=== PATIENT | female | born 1990 | race Caucasian/White ===

== ENCOUNTER 2018-07-06 20:29 | Emergency (ER) | payer MEDICAID ==
[2018-07-06] MEDS ORDERED: AZITHROMYCIN 250 MG TAB PO ONE (20:50)
--- NOTE | 2018-07-06 20:54 | EDPHY ---
H & P Stated Complaint: sent from for further work up of lt peritonsil abcess Time Seen by Provider: 07/06/18 20:44 HPI/ROS: CHIEF COMPLAINT: Tonsillitis HISTORY OF PRESENT ILLNESS: Patient is a 27-year-old female who comes to the emergency department complaining of painful exudative tonsils for the last week. She was seen on Saturday and had a rapid strep test done that was negative. She was seen again today, on Saturday, at the urgent care where they performed another rapid strep as well as a mono spot test. These were both negative. There was some concern for possible abscess so she was referred here to the ER. She has not had a fever. She was treated with Decadron and Toradol at the urgent care. She denies abdominal pain. No sick contacts. No rash. No runny nose. Severity: Moderate Modifying factors: None REVIEW OF SYSTEMS: Constitutional: denies: chills, fever, recent illness, recent injury EENTM: See HPI Respiratory: denies: cough, shortness of breath Cardiac: denies: chest pain, irregular heart rate, lightheadedness, palpitations Gastrointestinal/Abdominal: denies: abdominal pain, diarrhea, nausea, vomiting, blood streaked stools Genitourinary: denies: dysuria, frequency, hematuria, pain Musculoskeletal: denies: joint pain, muscle pain Skin: denies: lesions, rash, jaundice, bruising Neurological: denies: headache, numbness, paresthesia, tingling, dizziness, weakness Hematologic/Lymphatic: denies: blood clots, easy bleeding, easy bruising Immunologic/allergic: denies: HIV/AIDS, transplant 10 systems reviewed and negative except as noted EXAM: GENERAL: Well-appearing, well-nourished and in no acute distress. HEAD: Atraumatic, normocephalic. EYES: Pupils equal round and reactive to light, extraocular movements intact, sclera anicteric, conjunctiva are normal. ENT: TMs normal, nares patent, bilateral exudative tonsils, no peritonsillar abscess. No uvular deviation. No airway obstruction. She is talking without difficulty or distress. Moist mucous membranes. NECK: Normal range of motion, supple without lymphadenopathy or JVD. LUNGS: Breath sounds clear to auscultation bilaterally and equal. No wheezes rales or rhonchi. HEART: Regular rate and rhythm without murmurs, rubs or gallops. ABDOMEN: Soft, nontender, normoactive bowel sounds. No guarding, no rebound. No masses appreciated. No splenomegaly or tenderness BACK: No CVA tenderness, no spinal tenderness, step-offs or deformities EXTREMITIES: Normal range of motion, no pitting or edema. No clubbing or cyanosis. NEUROLOGICAL: Cranial nerves II through XII grossly intact. Normal speech, normal gait. 5/5 strength, normal movement in all extremities, normal sensation , normal reflexes PSYCH: Normal mood, normal affect. SKIN: Warm, dry, normal turgor, no visible rashes or lesions. Source: Patient Exam Limitations: No limitations - Personal History LMP (Females 10-55): 22-28 Days Ago Current Tetanus Diphtheria and Acellular Pertussis (TDAP): Yes - Medical/Surgical History Hx Asthma: No Hx Chronic Respiratory Disease: No Hx Diabetes: No Hx Cardiac Disease: No Hx Renal Disease: No Hx Cirrhosis: No Hx Alcoholism: No Hx HIV/AIDS: No Hx Splenectomy or Spleen Trauma: No - Family History Significant Family History: No pertinent family hx - Social History Smoking Status: Never smoked Alcohol Use: Sober Drug Use: None Constitutional: Initial Vital Signs Temperature (C) 36.6 C 07/06/18 20:44 Heart Rate 82 07/06/18 20:44 Respiratory Rate 20 07/06/18 20:44 Blood Pressure 137/88 H 07/06/18 20:44 O2 Sat (%) 97 07/06/18 20:44 O2 Delivery Mode Room Air Allergies/Adverse Reactions: Penicillins Allergy (Unknown, Verified 12/25/10 17:07) Unable to assess Allergy (Uncoded 12/25/10 17:07) Home Medications: Medication Instructions Recorded Azithromycin 250 mg PO DAILY #4 tablet 07/06/18 Zoloft 50mg (*) 07/06/18 traZODone 07/06/18 Medical Decision Making ED Course/Re-evaluation: The patient has peritonsillar exudate. No sign of significant swelling or abscess or phlegmon. No respiratory changes. I do not suspect fluid collection or drainable abscess. I do not think that imaging is indicated. Patient understands and agrees with this plan. I will start her on azithromycin. She understands that this may be mono and that she has had a false negative Monospot which is common in the 1st week of illness. If she is not improving in next 2-3 days I recommended she return for re-evaluation. We also discussed indications for returning if her symptoms worsen such as difficulty breathing, swallowing or high fevers. Differential Diagnosis: Partial list of the Differential diagnosis considered include but were not limited to; tonsillitis, strep throat, mononucleosis and although unlikely based on the history and physical exam, I also considered abscess, phlegmon, foreign body. I discussed these differential diagnoses and the plan with the patient as well as the usual and expected course. The patient understands that the diagnosis is provisional and that in medicine we are not always correct and that further workup is often warranted. Usual and customary warnings were given. All of the patient's questions were answered. The patient was instructed to return to the emergency department should the symptoms at all worsen or return, otherwise to followup with the physician as we discussed. - Data Points Medications Given: Discontinued Medications Azithromycin (Zithromax) 500 mg PO EDNOW ONE PRN Reason: Protocol Stop: 07/06/18 20:51 Last Admin: 07/06/18 21:02 Dose: 500 mg Oxycodone/Acetaminophen (Percocet 5/325mg Prepack#4) 1 btl TAKEHOME EDNOW ONE Stop: 07/06/18 21:10 Last Admin: 07/06/18 21:13 Dose: 1 btl Departure - Departure Disposition: Home, Routine, Self-Care Clinical Impression: Tonsillitis Condition: Fair Instructions: Oxycodone/Acetaminophen (By mouth), Tonsillitis (ED) Referrals: NONE *PRIMARY CARE P,. [Primary Care Provider] - As per Instructions ED,PHYSICIAN ONDUTY [Medical Doctor] - 2-3 days, if not improved Prescriptions: Azithromycin 250 mg PO DAILY #4 tablet
[2018-07-06] MEDS ORDERED: OXYCODONE/APAP 5/325MG PREPACK#4 BTL TAKEHOME ONE (21:09)
[2018-07-06 21:24] VITALS: BP 122/62
== END 2018-07-06 21:15 | disposition home or self-care (01) ==
LOC: CED 20:29
DX: J03.90 Acute tonsillitis, unspecified (principal)
CPT/HCPCS: 99283-ER

== ENCOUNTER 2018-07-08 11:35 | Emergency (ER) | payer MEDICAID ==
--- NOTE | 2018-07-08 14:26 | EDPHY ---
General Time Seen by Provider: 07/08/18 14:26 Narrative: CLINICAL IMPRESSION: Peritonsillar phlegmon ASSESSMENT/PLAN: Patient is a 27-year-old female with a significant history of depression who presents to the emergency department with complaints of worsening sore throat, inability to pass liquids and change in voice progressively occurring over the last week. Patient is afebrile she is very uncomfortable appearing however not toxic-appearing. Her vital signs were reviewed, she was mildly tachycardic on arrival. On physical exam reveals asymmetric tonsillar enlargement L>R; very firm tonsil without areas of fluctuance, uvula still remains midline. Patient with hoarseness and trismus however phonation is strong and without hot potato voice. There was no stridor, drooling, hypoxia or respiratory distress. Rapid strep negative, culture is still pending. CBC revealed no evidence of leukocytosis, lactate was normal without evidence of sepsis or serious bacterial illness. Basic metabolic panel grossly normal. CT soft tissue neck revealed left tonsillar/peritonsillar edema and phlegmon without dominant enhancing rim to suggest drainable fluid collection. History of physical examination is consistent with peritonsillar phlegmon and cellulitis. There was no evidence of peritonsillar abscess, retropharyngeal abscess, airway obstruction, Maurisio angina, or hypoxia. ENT was formally consulted, I spoke with ADRIANE Christensen; after consulting with her physician agreed with plan of IV antibiotics and steroids with follow-up tomorrow morning. Patient treated with 900 mg of clindamycin and 16 mg of dexamethasone. The patient was scheduled for an appointment at 9:45 a.m. with their office and is given specific instructions on where to go. Patient was also given a prescription for clindamycin which she will take for the next 10 days as well as a dexamethasone taper per the recommendation of ENT. On repeat examination prior to discharge the patient is much more comfortable appearing, was able to tolerate p. O. and felt comfortable going home with close follow-up. Her airway remained patent without evidence of obstruction or airway compromise. Strict return precautions discussed- she is to return should she develop worsening sore throat, drooling, change in voice, inability to pass secretions or any other concerning symptom. Patient verbalizes understanding and is in agreement with this plan. DIFFERENTIAL DX: Bacterial pharyngitis, retropharyngeal abscess, peritonsillar abscess, deep space infection, angioedema, Maurisio's, a node, epiglottitis, meningitis, pneumonia ED COURSE: 1434: Discussed case with Dr. Wilder CHIEF COMPLAINT: Sore throat HPI: Patient is a 27-year-old female with a history of depression who presents to the emergency department with persistent, worsening sore throat and change in voice. Patient reports approximately a week ago she started to develop a sore throat. She was seen and evaluated by her primary care provider last Saturday with a reported negative rapid strep screen. Patient continued to have pain, was seen and evaluated by urgent care on Saturday and started on a azithromycin. Patient has had 2 doses of antibiotics. Yesterday she was seen in the afternoon by Family Medicine, recommended for her to continue antibiotics however they called her today and patient reported feeling much worse. Patient sent here for further evaluation and concern for peritonsillar abscess. Patient reports over the last several days she has had a significant increase in her pain, does not improve with the Percocet that she has been given. She is now having difficulty swallowing and tolerating even liquids. She denies fever however has felt chilled and generally unwell. She denies any nausea or vomiting. She has had no runny nose, cough or congestion. She has had no chest pain, shortness of breath or abdominal pain. No history of peritonsillar abscess in the past. PAST MEDICAL HISTORY: Depression Pertinent Past Surgical History: Denies Family History: Noncontributory Social History: Rare alcohol, denies illicit drug use, denies cigarette smoking ROS: A full 10 point review of systems was negative except for those mentioned in HPI. PHYSICAL EXAM: General Appearance: Well-developed, very uncomfortable appearing however not toxic-appearing. HEENT: Normocephalic, atraumatic. There is no appreciable facial swelling or erythema. TMs are clear bilaterally no perforation or FB, no injection, no evidence of serous or mucopurulent otitis. Patient with asymmetric tonsillar enlargement L>R, uvula still remains midline. Upon palpation of the palate and tonsil, the left enlarged tonsil is very firm with no fluctuance noted. Patient with hoarseness and trismus however phonation is strong and without hot potato voice. Scant exudate notice bilaterally. Posterior pharynx appears clear. Dentition without abnormality. Patient tender along the left temporomandibular joint. Eyes: PERRLA, no acute vision change, nystagmus, swelling, discharge, pain or photosensitivity. Conjunctiva pink, no pallor or injection Neck: Supple, nontender, no appreciable lymphadenopathy, no midline pain, FROM, no meningismus. Respiratory: There are no retractions, lungs are clear to auscultation. Cardiac: Tachycardic, no murmurs or gallops. Gastrointestinal: Abdomen is soft, nontender, bowel sounds normal, no masses/ hernia, no rigidity, guarding or focal peritoneal findings. Skin: Warm, dry, no rashes, no nodules on palpation. MEDICAL DECISION MAKING: Patient was seen independently. Secondary supervising physician at time of evaluation was Dr. Wilder, he did not personally evaluate this patient. Diagnosis: Peritonsillar phlegmon. New, requires workup Summary: See Assessment and Plan for summary of ED visit Clinical lab tests: ordered / reviewed. Independent visualization of images, tracing, or specimens: Yes. Decision to obtain medical records or history from someone other than the patient: No Review / Summarize previous medical records: Yes Discussed patient with another provider: Yes, Dr. Wilder Patient Progress: Stable. - Diagnostics Imaging Results: Imaging Impressions Neck CT 07/08/18 14:39 Impression: Left tonsillar/peritonsillar edema/phlegmon with ipsilateral effacement of the oral airway. No consolidation to a dominant rim enhancing, loculated fluid collection is yet seen to suggest drainable abscess. Alice Brenner was notified of these findings by telephone at 4:50 PM on 07/08/2018 - History Smoking Status: Never smoked - Objective Vital Signs: Initial Vital Signs Temperature (C) 37.1 C 07/08/18 11:46 Heart Rate 109 H 07/08/18 11:46 Respiratory Rate 16 07/08/18 11:46 Blood Pressure 101/71 07/08/18 11:46 O2 Sat (%) 95 07/08/18 11:46 O2 Delivery Mode Room Air Allergies/Adverse Reactions: Penicillins Allergy (Unknown, Verified 12/25/10 17:07) cephalexin [From Keflex] Allergy (Verified 07/08/18 11:46) Unable to assess Allergy (Uncoded 12/25/10 17:07) Home Medications: Medication Instructions Recorded Azithromycin 250 mg PO DAILY #4 tablet 07/06/18 Zoloft 50mg (*) 07/06/18 traZODone 07/06/18 Clindamycin HCl [Clindamycin] 300 mg PO TID #30 cap 07/08/18 Dexamethasone [Decadron 4 MG (*)] 4 mg PO DAILY 4 Days #6 tab 07/08/18 Hydrocodone/APAP 5/325 [[place] 1 each PO Q4H PRN #8 tab 07/08/18 5/325 (*)] Ondansetron Odt [Zofran Odt] 4 mg PO Q8 PRN #10 tab 07/08/18 Vicodin 5-300 mg Tablet 07/08/18 Laboratory Results: Laboratory Results 07/08/18 15:02 07/08/18 15:02 07/08/18 07/08/18 07/08/18 Unknown 15:02 15:02 WBC RBC Hgb Hct MCV MCH MCHC RDW Plt Count MPV Neut % (Auto) Lymph % (Auto) Lewis % (Auto) Eos % (Auto) Baso % (Auto) Nucleat RBC Rel Count Absolute Neuts (auto) Absolute Lymphs (auto) Absolute Monos (auto) Absolute Eos (auto) Absolute Basos (auto) Absolute Nucleated RBC Immature Gran % Immature Gran # VBG Lactic Acid 1.1 mmol/L mmol/L (0.7-2.1) Sodium Potassium Chloride Carbon Dioxide Anion Gap BUN Creatinine Estimated GFR Glucose Calcium Beta HCG, Qual NEGATIVE Group A Strep Screen Group A Strep DNA Pending 07/08/18 07/08/18 07/08/18 15:02 15:02 14:53 WBC 8.99 10^3/uL 10^3/uL (3.80-9.50) RBC 4.27 10^6/uL 10^6/uL (4.18-5.33) Hgb 13.7 g/dL g/dL (12.6-16.3) Hct 39.3 % % (38.0-47.0) MCV 92.0 fL fL (81.5-99.8) MCH 32.1 pg pg (27.9-34.1) MCHC 34.9 g/dL g/dL (32.4-36.7) RDW 12.3 % % (11.5-15.2) Plt Count 231 10^3/uL 10^3/uL (150-400) MPV 9.4 fL fL (8.7-11.7) Neut % (Auto) 67.3 % % (39.3-74.2) Lymph % (Auto) 22.5 % % (15.0-45.0) Lewis % (Auto) 9.3 % % (4.5-13.0) Eos % (Auto) 0.4 % L % (0.6-7.6) Baso % (Auto) 0.3 % % (0.3-1.7) Nucleat RBC Rel Count 0.0 % % (0.0-0.2) Absolute Neuts (auto) 6.04 10^3/uL 10^3/uL (1.70-6.50) Absolute Lymphs (auto) 2.02 10^3/uL 10^3/uL (1.00-3.00) Absolute Monos (auto) 0.84 10^3/uL H 10^3/uL (0.30-0.80) Absolute Eos (auto) 0.04 10^3/uL 10^3/uL (0.03-0.40) Absolute Basos (auto) 0.03 10^3/uL 10^3/uL (0.02-0.10) Absolute Nucleated RBC 0.00 10^3/uL 10^3/uL (0-0.01) Immature Gran % 0.2 % % (0.0-1.1) Immature Gran # 0.02 10^3/uL 10^3/uL (0.00-0.10) VBG Lactic Acid Sodium 135 mEq/L mEq/L (135-145) Potassium 4.6 mEq/L mEq/L (3.5-5.2) Chloride 107 mEq/L mEq/L (97-110) Carbon Dioxide 21 mEq/l L mEq/l (22-31) Anion Gap 7 mEq/L mEq/L (6-14) BUN 12 mg/dL mg/dL (7-23) Creatinine 0.7 mg/dL mg/dL (0.6-1.0) Estimated GFR > 60 Glucose 82 mg/dL mg/dL (70-100) Calcium 9.3 mg/dL mg/dL (8.5-10.4) Beta HCG, Qual Group A Strep Screen NEGATIVE (NEGATIVE) Group A Strep DNA Medications Given: Discontinued Medications Hydrocodone Bitart/Acetaminophen ([place] 5/325) 1 tab PO EDNOW ONE Stop: 07/08/18 17:26 Last Admin: 07/08/18 17:30 Dose: 1 tab Dexamethasone (Decadron Injection) 10 mg IVP EDNOW ONE Stop: 07/08/18 14:39 Last Admin: 07/08/18 15:13 Dose: 10 mg Dexamethasone (Decadron Injection) 6 mg IVP EDNOW ONE Stop: 07/08/18 17:08 Last Admin: 07/08/18 17:29 Dose: 6 mg Hydromorphone HCl (Dilaudid) 0.5 mg IVP EDNOW ONE Stop: 07/08/18 15:03 Last Admin: 07/08/18 15:12 Dose: 0.5 mg Hydromorphone HCl (Dilaudid) 0.5 mg IVP EDNOW ONE Stop: 07/08/18 15:50 Last Admin: 07/08/18 16:14 Dose: 0.5 mg Clindamycin Phosphate/Dextrose (Cleocin 600 Mg (Premix)) 50 mls @ 100 mls/hr IV EDNOW ONE PRN Reason: Protocol Stop: 07/08/18 15:08 Last Admin: 07/08/18 15:23 Dose: 50 mls Sodium Chloride (Ns) 1,000 mls @ 0 mls/hr IV ONCE ONE PRN Reason: Wide Open Stop: 07/08/18 14:39 Last Admin: 07/08/18 16:18 Dose: Not Given Sodium Chloride (Ns) 2,000 mls @ 4,000 mls/hr 30 ml/kg infuse over 30 min ( 2000 ml) IV EDNOW ONE PRN Reason: Protocol Stop: 07/08/18 15:10 Last Admin: 07/08/18 15:12 Dose: 2,000 mls Departure - Departure Disposition: Home, Routine, Self-Care Clinical Impression: Peritonsillar abscess Condition: Good Instructions: Peritonsillar Abscess (ED) Additional Instructions: DISCHARGE INSTRUCTIONS FROM YOUR DOCTOR Thank you for visiting our emergency department today. Please keep in mind that discharge from the emergency department does not mean that there is nothing wrong - it simply means that we have not identified an emergency condition that requires further evaluation or treatment in the hospital. Your given IV antibiotics while in the emergency department, I have spoken to ENT and reviewed your findings with them. They would like to see you tomorrow morning at 9:45 a.m.. A referral has been provided and is in your discharge paperwork. You have been given a prescription for clindamycin 300 mg to be taken 3 times a day. This can cause diarrhea, please take a probiotic with this. You have also been prescribed a steroid taper, continue as directed. You have been prescribed [place] which is a narcotic. Please do not drive or operate machinery while taking this medication as it may make you drowsy. It may also be habit forming. This medication can also cause constipation, recommend taking 100 mg of Colace twice daily while taking this medication. This medication also contains Tylenol, please do not take other Tylenol containing products with this medication. People present with illnesses and injuries in different ways, and it is always possible that we have missed something. You may always return for re-evaluation if symptoms worsen or if they are not improving or if you develop new/different symptoms. Again, thank you for choosing our emergency department. We hope that you feel better. Referrals: Melba Quigley, PAC [Physician Appeals Referee] - 1 day without fail (Please show up at 9:45 am) Prescriptions: Clindamycin HCl [Clindamycin] 300 mg PO TID #30 cap Dexamethasone [Decadron 4 MG (*)] 4 mg PO DAILY 4 Days #6 tab Hydrocodone/APAP 5/325 [[place] 5/325 (*)] 1 each PO Q4H PRN #8 tab PRN Reason: Pain, Severe Ondansetron Odt [Zofran Odt] 4 mg PO Q8 PRN #10 tab PRN Reason: Nausea/Vomiting, Can'T Take Po
[2018-07-08] MEDS ORDERED: NS 1,000 ML IV ONE (14:38)
[2018-07-08] MEDS ORDERED: DEXAMETHASONE 10 MG/ML VIAL IVP ONE (14:38)
[2018-07-08] MEDS ORDERED: NS 2,000 ML IV ONE (14:41)
[2018-07-08] MEDS ORDERED: HYDROmorphONE/DILAUDID 2 MG/ML INJ IVP ONE ×3 (15:02→17:08)
[2018-07-08] MEDS: CLINDAMYCIN 600 MG/DEXTROSE 50 ML IV ONE ×2 (15:23→17:42)
[2018-07-08 15:30] LABS: PLATELET COUNT 231 10^3/uL (150-400)
[2018-07-08] MEDS ORDERED: IOPAMIDOL (ISOVUE 370) 100 ML BTL IV ONE (15:49)
[2018-07-08] MEDS ORDERED: DEXAMETHASONE 4 MG/ML VIAL IVP ONE (17:07)
[2018-07-08] MEDS ORDERED: CLINDAMYCIN 300 MG in NS 100 ML IV ONE (17:07)
[2018-07-08] MEDS ORDERED: HYDROCODONE/APAP 5/325 TAB PO ONE (17:25)
[2018-07-08 19:08] VITALS: BP 126/78
== END 2018-07-08 19:08 | disposition home or self-care (01) ==
DX: J36 Peritonsillar abscess (principal)
CPT/HCPCS: 96365; 96366; J1100; J1170; Q9967